=== PATIENT | female | born 1960 | race Caucasian/White ===

== ENCOUNTER 2017-09-01 21:00 | Emergency (ER) | payer BC ==
--- NOTE | 2017-09-01 21:50 | EDM.PDOC ---
ED HPI GENERAL MEDICAL PROBLEM - General Chief Complaint: Respiratory Problem Stated Complaint: SOB COUGH FEVER Time Seen by Provider: 09/01/17 21:20 Source of Information: Reports: Patient, Family () History Limitations: Reports: No Limitations - History of Present Illness INITIAL COMMENTS - FREE TEXT/NARRATIVE: The patient states that she was diagnosed with asthma at 4 years old. She has never seen a Component Engineer, and has never undergone pulmonary function tests. She does not recall if she has a peak flow meter at home, and states that the last time she ever used one was about 4 years ago. She now presents to the ED with dyspnea on exertion for about 4 days, and shortness of breath at rest since 10:00 this morning. She has had a dry cough for the past 2 days, and notes that the frequency of her cough increases when she is supine. She states that she has been wheezing, and believes that she is wheezing at this time. She also notes that her wheezing is worse if she is supine. She developed a subjective fever and chills this morning. No recent nausea, vomiting, constipation, or diarrhea. The patient has been taking Mucinex DM with no relief in symptoms. She took an albuterol by nebulizer around 15:00 this afternoon, also with no relief of symptoms. The patient does not recall that she has had similar symptoms in the past. The patient's PCP is Claudette Victor, from [facility] [place]. - Related Data Allergies Allergy/AdvReac Type Severity Reaction Status Date / Time No Known Allergies Allergy Verified 09/01/17 21:10 Home Meds: Home Meds Albuterol Sulfate [Proair Hfa] 8.5 gm IH DAILY PRN 09/01/17 [History] Diltiazem HCl [Taztia Xt] 300 mg PO DAILY 09/01/17 [History] Empagliflozin [Jardiance] 25 mg PO DAILY 09/01/17 [History] Fluticasone/Vilanterol [Breo Ellipta 200-25 Mcg INH] 1 puff INH DAILY 09/01/17 [ History] Liraglutide [Victoza 3-Andre] 18 mg SQ ASDIRECTED 09/01/17 [History] Losartan [Cozaar] 25 mg PO DAILY 09/01/17 [History] Montelukast [Singulair] 10 mg PO DAILY 09/01/17 [History] Rosuvastatin [Crestor] 5 mg PO BEDTIME 09/01/17 [History] metFORMIN HCl [Metformin HCl] 500 mg PO BID 09/01/17 [History] Past Medical History Cardiovascular History: Reports: High Cholesterol, Hypertension Respiratory History: Reports: Asthma (presumed) Gastrointestinal History: Reports: Diverticulosis Genitourinary History: Reports: Renal Calculus, Urinary Incontinence ( occasional stress incontinence) Endocrine/Metabolic History: Reports: Diabetes, Type II - Past Surgical History HEENT Surgical History: Reports: Tonsillectomy (at 5 years old) GI Surgical History: Reports: Cholecystectomy (1979) Social & Family History - Tobacco Use Smoking Status *Q: Never Smoker - Caffeine Use Caffeine Use: Reports: None - Alcohol Use Alcohol Use History: Yes Alcohol Use Frequency: Socially - Recreational Drug Use Recreational Drug Use: No - Living Situation & Occupation Living situation: Reports: , with Spouse 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 ED EXAM, GENERAL - Physical Exam Exam: See Below Exam Limited By: No Limitations General Appearance: Alert, WD/WN, No Apparent Distress Eye Exam: Bilateral Eye: Normal Inspection Ears: Normal External Exam, Normal Canal, Hearing Grossly Normal, Normal TMs Nose: Normal Inspection, Normal Mucosa, No Blood Throat/Mouth: Normal Inspection, Normal Lips, Normal Teeth, Normal Gums, Normal Oropharynx, Normal Voice, No Airway Compromise Head: Atraumatic, Normocephalic Neck: Normal Inspection, Full Range of Motion. No: Lymphadenopathy (L), Lymphadenopathy (R) Respiratory/Chest: No Respiratory Distress, Lungs Clear (after cough), Normal Breath Sounds (after cough), No Accessory Muscle Use, Rhonchi (greater when supine than upright; cleared with a cough). No: Decreased Breath Sounds, Crackles, Wheezing, Prolonged Expiration Cardiovascular: Normal Peripheral Pulses, Regular Rate, Rhythm, No Edema, No Gallop, No JVD, No Murmur, No Rub Peripheral Pulses: 4+: Radial (L), Radial (R) GI/Abdominal: Normal Bowel Sounds, Soft, Non-Tender, No Organomegaly, No Distention, No Abnormal Bruit, No Mass (Female) Exam: Deferred Rectal (Female) Exam: Deferred Back Exam: Normal Inspection, Full Range of Motion, NT Extremities: Normal Inspection, Normal Range of Motion, No Pedal Edema, Normal Capillary Refill Neurological: Alert, Oriented, Normal Cognition, No Motor/Sensory Deficits Psychiatric: Normal Affect Skin Exam: Warm, Dry, Intact, Normal Color, No Rash Course - Vital Signs Last Recorded V/S: Last Vital Signs Temp 38.3 C H 09/01/17 21:01 Pulse 103 H 09/01/17 21:01 Resp 17 09/01/17 21:01 BP 175/80 H 09/01/17 21:01 Pulse Ox 94 L 09/01/17 21:01 - Orders/Labs/Meds Orders: Active Orders 24 hr Category Date Time Status Chest 2V [CR] Stat Exams 09/01/17 21:15 Taken - Re-Assessments/Exams Free Text/Narrative Re-Assessment/Exam: 09/01/17 21:38 2-view chest radiograph reviewed. Cardiac silhouette is within normal limits. No pulmonary vascular congestion. No pleural effusions. No focal infiltrate. No pneumothorax. There are some increased lung markings, consistent with bronchitis , noted. No hyperinflation to suggest an acute asthma exacerbation. Formal read per the Radiologist pending. 09/01/17 21:39 Clinically, the patient has acute bronchitis, a viral illness. She had rhonchi on auscultation, worse supine than upright, which cleared when she coughed, revealing entirely clear lungs. Unfortunately, there are no medical treatments for bronchitis. Prior recommendations for Albuterol, Atrovent, and ibuprofen, have not been shown to be of benefit. Additionally, cough syrup, including narcotic-containing cough syrup, have also not been shown to be of benefit and are not recommended. I have asked the respiratory therapist to bring the patient a peak flow meter andchamber. I will have the respiratory therapist show the patient how to use a peak flow meter, so that she can better manage her asthma, and I will explain why she should use a space chamber whenever she uses her MDI. 09/01/17 21:59 The patient was given a peak flow meter and a space chamber per the respiratory therapist, and taught how to use the peak flow meter. Departure - Departure Time of Disposition: 21:59 Disposition: Home, Self-Care 01 Condition: Good Clinical Impression: Acute bronchitis - Discharge Information Instructions: Acute Bronchitis, Adult, [id number] Referrals: Claudette Da Silva MD [Primary Care Provider] - Forms: ED Department Discharge Additional Instructions: You were seen in the emergency room for fever, chills, cough, and shortness of breath. Workup in the ER included a chest x-ray, which showed changes consistent with bronchitis, but not an asthma exacerbation. Clinically, you have acute bronchitis, a viral infection of the tubes that lead into your lungs. Unfortunately, there are no medicines to treat acute bronchitis - it will have to run its course. Accordingly, we do not recommend that you take any over-the- counter cough or cold remedies, as they are of no benefit, but do have side effects. You have been provided a peak flow meter. Learn how to use it well. We recommend that you use it approximately 2 times a week. If your peak flow drops into the yellow zone, even if you are feeling well, this is an indication that you may get an asthma exacerbation within 2 weeks. Under these circumstances, contact your doctor for advice. If you are feeling short of breath, and your peak flow is in the yellow or red zone, use your albuterol as often as necessary to get relief. If you need to use albuterol more often than every 4 hours, you need to be seen by a doctor. If you are feeling short of breath, and your peak flow is in the green zone, do not use your albuterol, as your shortness of breath is due to something other than an asthma exacerbation. Whenever you use your albuterol MDI, use your chamber. Follow-up with your PCP, Claudette Victor, as needed. If any other problems, please do not hesitate to return to the ER. - My Orders Last 24 Hours: My Active Orders 09/01/17 21:15 Chest 2V [CR] Stat - Assessment/Plan Last 24 Hours: My Active Orders 09/01/17 21:15 Chest 2V [CR] Stat
--- NOTE | 2017-09-03 08:40 | CR ---
Chest: Two views of the chest were obtained. Comparison: No prior chest x-ray. Slight parenchymal density is seen above the left hemidiaphragm. Lungs otherwise are clear. Bony structures are unremarkable. Impression: 1. Slight parenchymal density above the left hemidiaphragm possibly due to early pneumonia. Diagnostic code #3
== END 2017-09-01 22:00 | disposition home or self-care (01) ==
LOC: JD.ED 21:00
DX: J20.9 Acute bronchitis, unspecified (principal); E78.00 Pure hypercholesterolemia, unspecified; I10 Essential (primary) hypertension; J45.909 Unspecified asthma, uncomplicated; E11.9 Type 2 diabetes mellitus without complications; Z79.84 Long term (current) use of oral hypoglycemic drugs; Z79.899 Other long term (current) drug therapy
CPT/HCPCS: 71046; 71046-26; 99283; 99285

== ENCOUNTER 2018-03-09 10:57 | Emergency (ER) | payer BC ==
[2018-03-09] MEDS ORDERED: HYDROmorphone 1 MG/ML Syringe IVPUSH STA (11:21)
[2018-03-09] MEDS ORDERED: Ondansetron 4 MG/2 ML SDV IVPUSH ONE (11:21)
[2018-03-09] MEDS ORDERED: Sodium Chloride 0.9% 1,000 ML IV SCH (11:30)
--- NOTE | 2018-03-09 11:33 | EDM.PDOC ---
ED HPI GENERAL MEDICAL PROBLEM - General Chief Complaint: Flank Pain Stated Complaint: FLANK PAIN Time Seen by Provider: 03/09/18 11:05 Source of Information: Reports: Patient, RN Notes Reviewed History Limitations: Reports: No Limitations - History of Present Illness INITIAL COMMENTS - FREE TEXT/NARRATIVE: Patient is a 57 year old female who presents to the ED for the evaluation of right sided flank pain. She states that this started around 10 AM this morning. This was sudden in onset. She notes the pain to be sharp and stabbing in nature. She also states that she has had 1 episode of a kidney stone in the past around 7 years ago and this feels very similar. She would rate the pain at an 8/10. She did not take any medications prior to ED arrival. She admits to nausea and vomiting, but denies fevers/chills, constipation, urinary urgency/ frequency, dysuria, low back pain, chest pain or shortness of breath. She states that the pain started in her right flank and radiates to her RLQ. She does still have her appendix, but she has had a cholecystecomy. She also notes a history of diverticulitis. Right Flank Pain Score (Numeric/FACES): 10 - Related Data Allergies Allergy/AdvReac Type Severity Reaction Status Date / Time No Known Allergies Allergy Verified 09/01/17 21:10 Home Meds: Home Meds Albuterol Sulfate [Proair Hfa] 8.5 gm IH DAILY PRN 09/01/17 [History] Diltiazem HCl [Taztia Xt] 300 mg PO DAILY 09/01/17 [History] Empagliflozin [Jardiance] 25 mg PO DAILY 09/01/17 [History] Fluticasone/Vilanterol [Breo Ellipta 200-25 Mcg INH] 1 puff INH DAILY 09/01/17 [ History] Liraglutide [Victoza 3-Andre] 18 mg SQ ASDIRECTED 09/01/17 [History] Losartan [Cozaar] 25 mg PO DAILY 09/01/17 [History] Montelukast [Singulair] 10 mg PO DAILY 09/01/17 [History] Rosuvastatin [Crestor] 5 mg PO BEDTIME 09/01/17 [History] metFORMIN HCl [Metformin HCl] 500 mg PO BID 09/01/17 [History] Ondansetron [Zofran ODT] 4 mg PO Q6H PRN #20 tab.dis 03/09/18 [Rx] Past Medical History Cardiovascular History: Reports: High Cholesterol, Hypertension Respiratory History: Reports: Asthma Gastrointestinal History: Reports: Diverticulosis Genitourinary History: Reports: Renal Calculus, Urinary Incontinence Endocrine/Metabolic History: Reports: Diabetes, Type II - Past Surgical History HEENT Surgical History: Reports: Tonsillectomy GI Surgical History: Reports: Cholecystectomy Social & Family History - Tobacco Use Smoking Status *Q: Never Smoker - Caffeine Use Caffeine Use: Reports: Coffee, Soda, Tea - Recreational Drug Use Recreational Drug Use: No - Living Situation & Occupation Living situation: Reports: , with Spouse 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 Denies: Constipation, Diarrhea : Reports: Flank Pain (right). Denies: Dysuria, Frequency, Urgency Musculoskeletal: Reports: No Symptoms Skin: Reports: No Symptoms Neurological: Reports: No Symptoms Psychiatric: Reports: No Symptoms Hematologic/Lymphatic: Reports: No Symptoms Immunologic: Reports: No Symptoms ED EXAM, RENAL/ - Physical Exam Exam: See Below Exam Limited By: No Limitations General Appearance: Alert, WD/WN, No Apparent Distress Eye Exam: Bilateral Eye: Normal Inspection Ears: Normal External Exam Nose: Normal Inspection Throat/Mouth: Normal Inspection, Normal Oropharynx, No Airway Compromise Head: Atraumatic, Normocephalic Neck: Normal Inspection Respiratory/Chest: No Respiratory Distress, Lungs Clear, Normal Breath Sounds, No Accessory Muscle Use, Chest Non-Tender Cardiovascular: Normal Peripheral Pulses, Regular Rate, Rhythm, No Murmur GI/Abdominal: Normal Bowel Sounds, Soft, No Mass, Tender. No: Guarding, Rigid, Rebound Back Exam: Normal Inspection, Full Range of Motion. No: CVA Tenderness (L), CVA Tenderness (R) Extremities: Normal Inspection, Normal Capillary Refill Neurological: Alert, Oriented, Normal Cognition, No Motor/Sensory Deficits Psychiatric: Normal Affect, Normal Mood Skin Exam: Warm, Dry, Intact, Normal Color, No Rash Lymphatic: No Adenopathy Course - Vital Signs Last Recorded V/S: Last Vital Signs Temp 97.0 F 03/09/18 11:05 Pulse 92 03/09/18 11:05 Resp 20 03/09/18 11:05 BP 160/88 H 03/09/18 11:05 Pulse Ox 100 03/09/18 11:05 - Orders/Labs/Meds Orders: Active Orders 24 hr Category Date Time Status Strain Urine [RC] ASDIRECTED Care 03/09/18 11:22 Ordered Sodium Chloride 0.9% [Normal Saline] 1,000 ml Med 03/09/18 11:30 Ordered IV ASDIRECTED Medication Orders Sodium Chloride (Normal Saline) 1,000 mls @ 999 mls/hr IV ASDIRECTED STAN Last Admin: 03/09/18 11:41 Dose: 999 mls/hr Labs: Laboratory Tests 03/09/18 Range/Units 11:35 Urine Color Yellow (Yellow) Urine Appearance Clear (Clear) Urine pH 6.0 (5.0-8.0) Ur Specific Mercedes 1.020 (1.005-1.030) Urine Protein Trace H (Negative) Urine Glucose (UA) 2+ H (Negative) Urine Ketones Trace H (Negative) Urine Occult Blood Trace-intact H (Negative) Urine Nitrite Negative (Negative) Urine Bilirubin Negative (Negative) Urine Urobilinogen 0.2 (0.2-1.0) Ur Leukocyte Esterase Negative (Negative) Urine RBC Not seen (0-5) /hpf Urine WBC 0-5 (0-5) /hpf Ur Epithelial Cells 0-5 (0-5) /hpf Urine Bacteria Not seen (FEW) /hpf Urine Mucus Not seen (FEW) /hpf Meds: Medications Generic Name Dose Route Start Last Admin Trade Name Freq PRN Reason Stop Dose Admin Sodium Chloride 1,000 mls @ 999 mls/hr 03/09/18 11:30 03/09/18 11:41 Normal Saline IV 999 mls/hr ASDIRECTED STAN Administration Discontinued Medications Generic Name Dose Route Start Last Admin Trade Name Freq PRN Reason Stop Dose Admin Hydromorphone HCl 1 mg 03/09/18 11:21 03/09/18 11:42 Dilaudid IVPUSH 03/09/18 11:22 1 mg ONETIME STA Administration Ondansetron HCl 4 mg 03/09/18 11:21 03/09/18 11:41 Zofran IVPUSH 03/09/18 11:22 4 mg ONETIME ONE Administration - Radiology Interpretation Free Text/Narrative:: CT abdomen and pelvis Technique: Multiple axial sections were obtained from above the dome of the diaphragm inferiorly through the pubic symphysis. Intravenous and oral contrast has not been given. Study was performed as a ureteral stone protocol. Comparison: Prior CT abdomen and pelvis exam of 03/04/13. Findings: Mildly prominent right ureter is seen down to the UVJ. This is caused by a small obstructing stone measuring 2.5 mm at the UVJ. No other abnormal calcifications are seen along the course of the ureters. No abnormal calcifications are seen within the kidneys. Cyst is identified within the posterior and lower right kidney measuring approximately 3.9 cm in size. This cyst has increased in size from previous exam. Visualized lung bases shows nothing acute. Noncontrast appearance of the liver shows no focal abnormality. Surgical clips are seen from prior cholecystectomy. Spleen appears within normal limits. Pancreas appears within normal limits. Aorta shows slight atherosclerotic change without aneurysm. No retroperitoneal adenopathy or mesenteric abnormalities are seen. Appendix is seen and is normal in size. No pelvic mass or adenopathy is seen. No free fluid is seen. Bone window settings were reviewed which shows spondylitic defects at L3-4 with mild spondylolisthesis measuring about 5 mm. Severe disc space narrowing is noted at L3-4 with endplate sclerosis. Lesser degenerative change is seen within other portions of the spine. Impression: 1. Mild dilatation of the right ureter down to the UVJ. This finding caused by an obstructing 2.5 mm stone located at the UVJ on the right side. 2. Incidental cyst within the right kidney increased in size from previous CT study. 3. Degenerative change within the lumbar spine as noted above. - Re-Assessments/Exams Free Text/Narrative Re-Assessment/Exam: 03/09/18 11:38 Pt presents to the ED for the evaluation of sudden onset right sided flank pain. This is suspicious for kidney stone. Have ordered IV bolus of NS, UA, 1 mg IV Dilaudid for pain relief, 4mg IV zofran for nausea, and abdomen CT without contrast for further evaluation; with her noted history of diverticulitis. 03/09/18 13:01 CT reveals a kidney stone in the distal right UVJ, this will likely pass this within 24-48hrs. She will be sent home with a strainer to catch the stone if possible. Departure - Departure Time of Disposition: 13:01 Disposition: Home, Self-Care 01 Condition: Fair Clinical Impression: Kidney stone on right side - Discharge Information *PRESCRIPTION DRUG MONITORING PROGRAM REVIEWED*: No *COPY OF PRESCRIPTION DRUG MONITORING REPORT IN PATIENT MANPREET: No Instructions: Flank Pain, Adult, [id number], Kidney Stones, [id number] Referrals: Claudette Da Silva MD [Primary Care Provider] - Forms: ED Department Discharge Additional Instructions: You have been evaluated in the ED for right flank pain. Your CT demonstrated that you did have a kidney stone in your right ureter ( urine tube from kidney into bladder). Your CT also demonstrated a cyst on your right kidney, measuring 3.9cm in size. Recommend follow up with primary care provider for management. You may take 600mg ibuprofen or 500 mg tylenol every 6 hours as needed for pain relief. Please try to increase intake of fluids to help flush the kidney stone out. Please return to ED if your symptoms change or worsen. - My Orders Last 24 Hours: My Active Orders 03/09/18 11:22 Strain Urine [RC] ASDIRECTED 03/09/18 11:30 Sodium Chloride 0.9% [Normal Saline] 1,000 ml IV ASDIRECTED - Assessment/Plan Last 24 Hours: My Active Orders 03/09/18 11:22 Strain Urine [RC] ASDIRECTED 03/09/18 11:30 Sodium Chloride 0.9% [Normal Saline] 1,000 ml IV ASDIRECTED
--- NOTE | 2018-03-09 12:26 | CT ---
CT abdomen and pelvis Technique: Multiple axial sections were obtained from above the dome of the diaphragm inferiorly through the pubic symphysis. Intravenous and oral contrast has not been given. Study was performed as a ureteral stone protocol. Comparison: Prior CT abdomen and pelvis exam of 03/04/13. Findings: Mildly prominent right ureter is seen down to the UVJ. This is caused by a small obstructing stone measuring 2.5 mm at the UVJ. No other abnormal calcifications are seen along the course of the ureters. No abnormal calcifications are seen within the kidneys. Cyst is identified within the posterior and lower right kidney measuring approximately 3.9 cm in size. This cyst has increased in size from previous exam. Visualized lung bases shows nothing acute. Noncontrast appearance of the liver shows no focal abnormality. Surgical clips are seen from prior cholecystectomy. Spleen appears within normal limits. Pancreas appears within normal limits. Aorta shows slight atherosclerotic change without aneurysm. No retroperitoneal adenopathy or mesenteric abnormalities are seen. Appendix is seen and is normal in size. No pelvic mass or adenopathy is seen. No free fluid is seen. Bone window settings were reviewed which shows spondylitic defects at L3-4 with mild spondylolisthesis measuring about 5 mm. Severe disc space narrowing is noted at L3-4 with endplate sclerosis. Lesser degenerative change is seen within other portions of the spine. Impression: 1. Mild dilatation of the right ureter down to the UVJ. This finding caused by an obstructing 2.5 mm stone located at the UVJ on the right side. 2. Incidental cyst within the right kidney increased in size from previous CT study. 3. Degenerative change within the lumbar spine as noted above. Diagnostic code #3
== END 2018-03-09 13:30 | disposition home or self-care (01) ==
LOC: JD.ED 10:57
DX: N20.0 Calculus of kidney (principal); I10 Essential (primary) hypertension; E78.00 Pure hypercholesterolemia, unspecified; J45.909 Unspecified asthma, uncomplicated; E11.9 Type 2 diabetes mellitus without complications; Z79.84 Long term (current) use of oral hypoglycemic drugs; Z79.899 Other long term (current) drug therapy; Z90.49 Acquired absence of other specified parts of digestive tract; Z90.89 Acquired absence of other organs
CPT/HCPCS: 74176; 81001; 96361; 96374; 96375; 99284; J1170; J2405; J7040

== ENCOUNTER 2018-03-09 14:28 | Emergency (ER) | payer BC ==
[2018-03-09] MEDS ORDERED: Acetaminophen/HYDROcodone 325-5 MG Tab PO ONE (15:11)
[2018-03-09] MEDS ORDERED: Ondansetron 4 MG Tab.DIS PO ONE (15:11)
--- NOTE | 2018-03-09 15:16 | EDM.PDOC ---
ED HPI GENERAL MEDICAL PROBLEM - General Chief Complaint: Flank Pain Stated Complaint: FLANK PAIN Time Seen by Provider: 03/09/18 14:34 Source of Information: Reports: Patient, RN Notes Reviewed History Limitations: Reports: No Limitations - History of Present Illness INITIAL COMMENTS - FREE TEXT/NARRATIVE: Patient is a 57 year old female who presents to the ED for the evaluation of kidney stone pain. She was previously seen in the ED earlier this morning for a kidney stone, by me. She states that she was feeling okay when she was discharged, the pain was just an ache. She states that while she was waiting at pharmacy, the pain worsened, and she was unable to wait there for the medications. She also had some nausea with this episode. She was discharged with norco 5-325 and ODT zofran. Right Flank Pain Score (Numeric/FACES): 10 - Related Data Allergies Allergy/AdvReac Type Severity Reaction Status Date / Time No Known Allergies Allergy Verified 09/01/17 21:10 Home Meds: Home Meds Albuterol Sulfate [Proair Hfa] 8.5 gm IH DAILY PRN 09/01/17 [History] Diltiazem HCl [Taztia Xt] 300 mg PO DAILY 09/01/17 [History] Empagliflozin [Jardiance] 25 mg PO DAILY 09/01/17 [History] Liraglutide [Victoza 3-Andre] 18 mg SQ ASDIRECTED 09/01/17 [History] Losartan [Cozaar] 25 mg PO DAILY 09/01/17 [History] Montelukast [Singulair] 10 mg PO DAILY 09/01/17 [History] Rosuvastatin [Crestor] 5 mg PO BEDTIME 09/01/17 [History] metFORMIN HCl [Metformin HCl] 500 mg PO BID 09/01/17 [History] Hydrocodone/Acetaminophen [Mather 5-325 Tablet] 1 each PO Q6H PRN #12 tablet 10/18 [Rx] Ondansetron [Zofran ODT] 4 mg PO Q6H PRN #20 tab.dis 03/09/18 [Rx] Past Medical History Cardiovascular History: Reports: High Cholesterol, Hypertension Respiratory History: Reports: Asthma Gastrointestinal History: Reports: Diverticulosis Genitourinary History: Reports: Renal Calculus, Urinary Incontinence Endocrine/Metabolic History: Reports: Diabetes, Type II - Past Surgical History HEENT Surgical History: Reports: Tonsillectomy GI Surgical History: Reports: Cholecystectomy Social & Family History - Caffeine Use Caffeine Use: Reports: Coffee, Soda, Tea - Living Situation & Occupation Living situation: Reports: , with Spouse 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 ED EXAM, RENAL/ - Physical Exam Exam: See Below Exam Limited By: No Limitations General Appearance: Alert, WD/WN, Mild Distress (pt balled up in bed, due to pain. ) Respiratory/Chest: No Respiratory Distress, Lungs Clear, Normal Breath Sounds, No Accessory Muscle Use, Chest Non-Tender Cardiovascular: Normal Peripheral Pulses, Regular Rate, Rhythm, No Murmur GI/Abdominal: Normal Bowel Sounds, Soft, Non-Tender, No Distention, No Abnormal Bruit, No Mass. No: Guarding, Rigid, Rebound Extremities: Normal Inspection, Normal Capillary Refill Neurological: Alert, Oriented, Normal Cognition, No Motor/Sensory Deficits Psychiatric: Normal Affect, Normal Mood Skin Exam: Warm, Dry, Intact, Normal Color, No Rash Course - Vital Signs Last Recorded V/S: Last Vital Signs Temp 96.8 F 03/09/18 14:46 Pulse 61 03/09/18 14:46 Resp 20 03/09/18 14:46 BP 135/73 03/09/18 14:46 Pulse Ox 100 03/09/18 14:46 - Orders/Labs/Meds Meds: Medications Discontinued Medications Generic Name Dose Route Start Last Admin Trade Name Kush PRN Reason Stop Dose Admin Hydrocodone Bitart/Acetaminophen 2 tab 03/09/18 15:11 03/09/18 15:21 Mather 325-5 Mg PO 03/09/18 15:12 2 tab ONETIME ONE Administration Ondansetron HCl 4 mg 03/09/18 15:11 03/09/18 15:21 Zofran Odt PO 03/09/18 15:12 4 mg ONETIME ONE Administration - Re-Assessments/Exams Free Text/Narrative Re-Assessment/Exam: 03/09/18 15:16 Pt presents to the ED for the evaluation of R flank pain. She states that the pain was just as intense as it was this AM when she first was evaluated by myself. At previous ED visit she was given 1mg IV dilaudid, 4mg IV zofran. This ED visit, she will be given 2 tabs 5-325 norco and 4mg ODT zofran for pain relief and nausea relief. 03/09/18 16:02 Pt reassessed at bedside, she does feel better once again. She will be d/c home. Departure - Departure Time of Disposition: 16:03 Disposition: Home, Self-Care 01 Condition: Fair Clinical Impression: Kidney stone - Discharge Information *PRESCRIPTION DRUG MONITORING PROGRAM REVIEWED*: Not Applicable *COPY OF PRESCRIPTION DRUG MONITORING REPORT IN PATIENT MANPREET: Not Applicable Instructions: Kidney Stones, [id number] Referrals: Claudette Da Silva MD [Primary Care Provider] - Forms: ED Department Discharge Additional Instructions: You have been evaluated in the ED for right sided flank pain. Please take the medications from previous ED visit as directed for pain and nausea. You may want to take miralax daily to promote good bowel health while taking the pain medication. Please increase fluid intake. Please return to ED if your symptoms should change or worsen.
== END 2018-03-09 16:18 | disposition home or self-care (01) ==
LOC: JD.ED 14:28
DX: N20.0 Calculus of kidney (principal); E78.00 Pure hypercholesterolemia, unspecified; I10 Essential (primary) hypertension; E11.9 Type 2 diabetes mellitus without complications; J45.909 Unspecified asthma, uncomplicated; Z79.84 Long term (current) use of oral hypoglycemic drugs; Z79.899 Other long term (current) drug therapy; Z79.1 Long term (current) use of non-steroidal anti-inflammatories (NSAID); Z90.49 Acquired absence of other specified parts of digestive tract; Z90.89 Acquired absence of other organs
CPT/HCPCS: 99284; A9270

== ENCOUNTER 2018-10-22 12:20 | Emergency (ER) | payer BC ==
[2018-10-22] MEDS ORDERED: Sodium Chloride 0.9% 10 ML Syringe FLUSH PRN (12:43)
[2018-10-22] MEDS ORDERED: methylPREDNISolone Sodium Succinate 125 MG/2 ML SDV IVPUSH ONE (12:44)
[2018-10-22] MEDS ORDERED: Famotidine 20 MG/2 ML SDV IVPUSH ONE (12:44)
[2018-10-22] MEDS ORDERED: diphenhydrAMINE 50 MG/ML SDV IVPUSH ONE (12:44)
[2018-10-22] MEDS ORDERED: Ondansetron 4 MG/2 ML SDV IVPUSH ONE (12:59)
--- NOTE | 2018-10-22 14:31 | EDM.PDOC ---
ED HPI GENERAL MEDICAL PROBLEM - General Chief Complaint: Allergic Reaction Stated Complaint: ALLERGIC RX Time Seen by Provider: 10/22/18 12:27 Source of Information: Reports: Patient, Family History Limitations: Reports: No Limitations - History of Present Illness INITIAL COMMENTS - FREE TEXT/NARRATIVE: The patient was at [facility] and had a bite of soup and started to have a reaction. She has a scratchy throat and redness to her face, arms, torso and upper legs. She says this has happened 3 times now. The first time was in [place] and she was admitted to [facility] and another time was in [place]. No cause has ever been found. They did take her off of one of her blood pressure medicines and that did not help. She did not take anything abnormal today and she never had a problem with the soup before. She does not feel she is short of breath. She has no chest pain or abdominal pain. She does have some nausea. Onset: Sudden Duration: Minutes: Location: Reports: Generalized Quality: Reports: Burning (and itching) Severity: Moderate Improves with: Reports: None Worsens with: Reports: None Associated Symptoms: Reports: No Other Symptoms - Related Data Allergies Allergy/AdvReac Type Severity Reaction Status Date / Time No Known Allergies Allergy Verified 09/01/17 21:10 Home Meds: Home Meds Diltiazem HCl [Taztia Xt] 300 mg PO DAILY 09/01/17 [History] Empagliflozin [Jardiance] 25 mg PO DAILY 09/01/17 [History] Montelukast [Singulair] 10 mg PO DAILY 09/01/17 [History] Rosuvastatin [Crestor] 5 mg PO BEDTIME 09/01/17 [History] metFORMIN HCl [Metformin HCl] 1,000 mg PO BID 09/01/17 [History] Liraglutide [Victoza] 1 kit SQ DAILY 10/22/18 [History] Mometasone/Formoterol [Dulera 100-5 MCG] 2 puff INH BID 10/22/18 [History] predniSONE [Prednisone] 40 mg PO DAILY #10 tablet 10/22/18 [Rx] Past Medical History Cardiovascular History: Reports: Afib, High Cholesterol, Hypertension Respiratory History: Reports: Asthma Gastrointestinal History: Reports: Diverticulosis Genitourinary History: Reports: Renal Calculus, Urinary Incontinence Endocrine/Metabolic History: Reports: Diabetes, Type II Oncologic (Cancer) History: Reports: Renal - Past Surgical History HEENT Surgical History: Reports: Tonsillectomy GI Surgical History: Reports: Cholecystectomy Female Surgical History: Reports: Other (See Below) Other Female Surgeries/Procedures: partial nephrectomy Social & Family History - Family History Endocrine/Metabolic: Reports: Diabetes, type II - Tobacco Use Smoking Status *Q: Never Smoker Second Hand Smoke Exposure: No - Caffeine Use Caffeine Use: Reports: None - Recreational Drug Use Recreational Drug Use: No - Living Situation & Occupation Living situation: Reports: , with Spouse 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) ED ROS ALLERGIC REACTION - Review of Systems Review Of Systems: See Below Constitutional: Reports: No Symptoms HEENT: Reports: No Symptoms Respiratory: Reports: No Symptoms Cardiovascular: Reports: No Symptoms Endocrine: Reports: No Symptoms GI/Abdominal: Reports: No Symptoms : Reports: No Symptoms Musculoskeletal: Reports: No Symptoms Skin: Reports: Rash ED EXAM GENERAL NO PERIP PULSE - Physical Exam Exam: See Below Exam Limited By: No Limitations General Appearance: Alert, No Apparent Distress Ears: Normal External Exam Nose: Normal Inspection Head: Atraumatic, Normocephalic Neck: Normal Inspection Respiratory/Chest: No Respiratory Distress, Lungs Clear, Normal Breath Sounds Cardiovascular: Regular Rate, Rhythm, No Edema, No Murmur GI/Abdominal: Soft, Non-Tender, No Organomegaly, No Mass Back Exam: Normal Inspection Extremities: Normal Inspection Neurological: Alert, Oriented, No Motor/Sensory Deficits Skin Exam: Rash Course - Vital Signs Last Recorded V/S: Last Vital Signs Temp 97.3 F 10/22/18 12:25 Pulse 87 10/22/18 12:25 Resp 16 10/22/18 12:25 BP 136/75 10/22/18 12:25 Pulse Ox 95 10/22/18 12:25 - Orders/Labs/Meds Orders: Active Orders 24 hr Category Date Time Status Peripheral IV Care [RC] . DIRECTED Care 10/22/18 12:43 Active Sodium Chloride 0.9% [Saline Flush] Med 10/22/18 12:43 Active 10 ml FLUSH ASDIRECTED PRN Peripheral IV Insertion Adult [OM.PC] Stat Oth 10/22/18 12:43 Ordered Medication Orders Sodium Chloride (Saline Flush) 10 ml FLUSH ASDIRECTED PRN PRN Reason: Keep Vein Open Last Admin: 10/22/18 12:53 Dose: 10 ml Labs: Laboratory Tests 10/22/18 10/22/18 Range/Units 12:40 12:40 WBC 11.84 H (3.98-10.04) K/mm3 RBC 5.85 H (3.98-5.22) M/mm3 Hgb 16.0 H (11.2-15.7) gm/L Hct 49.9 H (34.1-44.9) % MCV 85.3 (79.4-94.8) fl MCH 27.4 (25.6-32.2) pg MCHC 32.1 L (32.2-35.5) g/dl RDW Std Deviation 43.9 (36.4-46.3) fL Plt Count 263 (182-369) K/mm3 MPV 11.1 (9.4-12.3) fl Neut % (Auto) 61.5 (34.0-71.1) % Lymph % (Auto) 30.2 (19.3-51.7) % Harding % (Auto) 7.7 (4.7-12.5) % Eos % (Auto) 0.3 L (0.7-5.8) Baso % (Auto) 0.1 (0.1-1.2) % Neut # (Auto) 7.29 H (1.56-6.13) K/mm3 Lymph # (Auto) 3.58 (1.18-3.74) K/mm3 Harding # (Auto) 0.91 H (0.24-0.36) K/mm3 Eos # (Auto) 0.03 L (0.04-0.36) K/mm3 Baso # (Auto) 0.01 (0.01-0.08) K/mm3 Sodium 143 (136-145) mEq/L Potassium 4.2 (3.5-5.1) mEq/L Chloride 104 (98-107) mEq/L Carbon Dioxide 27 (21-32) mEq/L Anion Gap 16.2 H (5-15) BUN 25 H (7-18) mg/dL Creatinine 0.7 (0.55-1.02) mg/dL Est Cr Clr Drug Dosing 77.87 mL/min Estimated GFR (MDRD) > 60 (>60) mL/min BUN/Creatinine Ratio 35.7 H (14-18) Glucose 127 H (74-106) mg/dL Calcium 10.2 H (8.5-10.1) mg/dL Total Bilirubin 1.0 (0.2-1.0) mg/dL AST 25 (15-37) U/L ALT 52 (14-59) U/L Alkaline Phosphatase 70 (46-116) U/L Total Protein 8.3 H (6.4-8.2) g/dl Albumin 4.7 (3.4-5.0) g/dl Globulin 3.6 gm/dL Albumin/Globulin Ratio 1.3 (1-2) Meds: Medications Generic Name Dose Route Start Last Admin Trade Name Freq PRN Reason Stop Dose Admin Sodium Chloride 10 ml 10/22/18 12:43 10/22/18 12:53 Saline Flush FLUSH 10 ml ASDIRECTED PRN Administration Keep Vein Open Discontinued Medications Generic Name Dose Route Start Last Admin Trade Name Freq PRN Reason Stop Dose Admin Diphenhydramine HCl 50 mg 10/22/18 12:44 10/22/18 12:57 Benadryl IVPUSH 10/22/18 12:45 50 mg ONETIME ONE Administration Famotidine 20 mg 10/22/18 12:44 10/22/18 12:55 Pepcid IVPUSH 10/22/18 12:45 20 mg ONETIME ONE Administration Methylprednisolone Sodium Succinate 125 mg 10/22/18 12:44 10/22/18 12:53 Solu-Medrol IVPUSH 10/22/18 12:45 125 mg ONETIME ONE Administration Ondansetron HCl 4 mg 10/22/18 12:59 10/22/18 13:05 Zofran IVPUSH 10/22/18 13:00 4 mg ONETIME ONE Administration - Re-Assessments/Exams Free Text/Narrative Re-Assessment/Exam: 10/22/18 14:33 I ordered an IV saline lock, solu-medrol 125mg IV, pepcid 20mg IV, and benadryl 50mg IV. She is feeling better. I will discharge her home on some prednisone and have her take benadryl and pepcid daily. Departure - Departure Time of Disposition: 14:35 Disposition: Home, Self-Care 01 Condition: Good Clinical Impression: Allergic reaction Qualifiers: Encounter type: initial encounter Qualified Code(s): T78.40XA - Allergy, unspecified, initial encounter - Discharge Information *PRESCRIPTION DRUG MONITORING PROGRAM REVIEWED*: No *COPY OF PRESCRIPTION DRUG MONITORING REPORT IN PATIENT MANPREET: No Prescriptions: predniSONE [Prednisone] 40 mg PO DAILY #10 tablet Referrals: Kathleen Fuller PA [Primary Care Provider] - 1 Week Additional Instructions: Take prednisone daily for 5 days. Take pepcid daily for 5 days. Take benadryl 50mg every 6 hours as needed for symptoms. Please return if you are worse. Follow up with your provider and discuss possibly seeing a personal computer specialist. - My Orders Last 24 Hours: My Active Orders 10/22/18 12:43 Peripheral IV Care [RC] . DIRECTED Sodium Chloride 0.9% [Saline Flush] 10 ml FLUSH ASDIRECTED PRN Peripheral IV Insertion Adult [OM.PC] Stat - Assessment/Plan Last 24 Hours: My Active Orders 10/22/18 12:43 Peripheral IV Care [RC] . DIRECTED Sodium Chloride 0.9% [Saline Flush] 10 ml FLUSH ASDIRECTED PRN Peripheral IV Insertion Adult [OM.PC] Stat
== END 2018-10-22 14:52 | disposition home or self-care (01) ==
LOC: JD.ED 12:20
DX: T78.40XA Allergy, unspecified, initial encounter (principal); I10 Essential (primary) hypertension; J45.909 Unspecified asthma, uncomplicated; E11.9 Type 2 diabetes mellitus without complications; E78.00 Pure hypercholesterolemia, unspecified; Z85.528 Personal history of other malignant neoplasm of kidney; Z79.84 Long term (current) use of oral hypoglycemic drugs; Z79.899 Other long term (current) drug therapy
CPT/HCPCS: 36415; 80053; 85025; 96374; 96375; 99283; J1200; J2405; J2930; J3490; 99284

== ENCOUNTER 2023-06-27 22:24 | Emergency (ER) | payer BC ==
[2023-06-27] MEDS: Oxymetazoline 0.05% Nasal Spray 30 ML Bottle NAS ONE (22:43)
== END 2023-06-27 23:20 | disposition home or self-care (01) ==
LOC: JD.ED 22:24
DX: R04.0 Epistaxis (principal); I10 Essential (primary) hypertension; E78.00 Pure hypercholesterolemia, unspecified; E11.9 Type 2 diabetes mellitus without complications; Z88.8 Allergy status to other drugs, medicaments and biological substances; Z79.899 Other long term (current) drug therapy; Z79.84 Long term (current) use of oral hypoglycemic drugs; Z90.49 Acquired absence of other specified parts of digestive tract
CPT/HCPCS: 99283; A9270; 30901